=== PATIENT | male | born 2000 | race Caucasian/White ===

== ENCOUNTER 2025-08-10 22:19 | Emergency (ER) | payer SELFPAY ==
[2025-08-10 22:19] VITALS: BP 153/89; PULSE 107; RESP 16; TEMP 36.6; O2SAT 97; BMI 31.1
--- NOTE | 2025-08-10 22:30 | PC.NURSE ---
Pt lac to forehead cleansed with soap and saline, damp 4x4 applied to lac
--- NOTE | 2025-08-10 22:33 | CT_ITS ---
PROCEDURE INFORMATION: Exam: CT Head Without Contrast Exam date and time: 08/10/2025 10:59 PM Age: 25 years old Clinical indication: Pain; Other: Lac to forehead; Forehead lac; Additional info: Head trauma TECHNIQUE: Imaging protocol: Computed tomography of the head without contrast. Radiation optimization: All CT scans at this facility use at least one of these dose optimization techniques: automated exposure control; mA and/or kV adjustment per patient size (includes targeted exams where dose is matched to clinical indication); or iterative reconstruction. COMPARISON: No relevant prior studies available. FINDINGS: Brain: No acute intracranial hemorrhage, midline shift, or mass effect. Cerebral ventricles: No ventriculomegaly. Paranasal sinuses: Mild left maxillary sinus mucosal thickening. Mastoid air cells: Visualized mastoid air cells are well aerated. Bones: Unremarkable. No acute fracture. Soft tissues: Small right frontal scalp laceration. IMPRESSION: 1. No acute intracranial findings. 2. Small right frontal scalp laceration.
--- NOTE | 2025-08-10 22:33 | PC.NURSE ---
Order placed wrong per this RN for Tetanus vaccine. Verbal order from Dr Bello for TDap. Correct medication pulled from [employer] under patients account, however not scanning due to medication entered inccorecct. Dose pulled and verified with Mechelle DILL and given to patient at the order of Dr Bello.
[2025-08-10 23:00] VITALS: BP 132/81; PULSE 78; O2SAT 95
--- NOTE | 2025-08-10 23:12 | ED_ITS ---
Discharge Plan Disposition Patient Disposition: Home, Self-Care Condition: Good Referrals Follow up/Referrals: Provider,Referral, MD [Primary Care Provider, Medical] - See instructions Activity Restrictions/Add. Instructions Additional Instructions/Restrictions: Please apply bacitracin to the wound daily. You can return to work, but you should keep the laceration covered. You may clean the laceration with warm soap and water. Do not submerge your head under water -- no lakes, ponds, garcia, baths, pools, or hot tubs. The stitches will dissolve and fall out within a week. If you have any new or worsening symptoms please return. Clinical Impressions Clinical Impression: Forehead laceration Qualifiers: Encounter type: initial encounter Qualified Code(s): S01.81XA - Laceration without foreign body of other part of head, initial encounter Contusion of head Qualifiers: Encounter type: initial encounter Contusion of head detail: other part of head Qualified Code(s): S00.83XA - Contusion of other part of head, initial encounter Print Language Print Language: Burmese Discharge ED Provider: Doroteo Bello Adult HPI General Chief complaint: Head Injury Stated complaint: laceration Time Seen by Provider: 08/10/25 22:31 Mode of Arrival: EMS Source of Information: Patient and EMS Description of Symptoms (Recalled from ER Triage Doc. by RN): Pt presents via ems with complaints of head injury that occurred just prior to arrival while the patient was working outside and a tool that he was using came back and hit him in the forehead. Pt is unsure of LOC. Pt denies N/V at this time. History of Present Illness HPI narrative: This is a 25-year-old male patient, with past medical history of Crohn's disease, who is presenting to the emergency department today for evaluation of a head injury. Patient states that he he was working on a truck and was changing the brake pads. He was using a crowbar and the bar slipped off of the vehicle and impacted his forehead. He suffered a laceration to the forehead but did not lose consciousness. EMS arrived to the scene and the wound was hemostatic. They brought him here for further evaluation. He states that he has had a significant headache since the injury. No blurred vision, no nausea, no vomiting. Related Data Allergies Allergy/AdvReac Type Severity Reaction Status Date / Time No Known Allergies Allergy Verified 08/10/25 22:24 [facility] Disclaimer: The information contained in this section may have been updated after the patient was seen, as this information can be updated by other users. Social History Smoking Status: Current every day smoker alcohol intake: never current occupational status: employed Travel in the last 8 weeks?: None ROS Obtained: Yes Systems reviewed as appropriate & no additional complaints except as documented Physical Exam General General appearance: other (See MDM) Respiratory Respiratory exam: Present other (See MDM) Cardiovascular Cardiovascular exam: Present other (See MDM) Neurological Exam Neurological exam: Present other (See MDM) Medical Decision Making Medical Records Medical records reviewed: Yes I reviewed the patient's medical records. Screening: Per USPSTF and CDC recommendations, given the prevalence of disease in our region, it is our hospital?s policy to screen for HIV and viral Hepatitis for all patients aged 18 and over and those with ongoing risk factors. Branden Inquiry Pt receiving controlled substance: No Branden was queried for this patient: No Vital Signs: 08/10/25 22:19 08/10/25 23:00 Temperature 97.8 F Temperature Source Oral Pulse Rate 78 Pulse Rate [Radial] 107 H Respiratory Rate 16 Blood Pressure 132/81 Blood Pressure [Right Arm] 153/89 H Blood Pressure Mean [Right Arm] 110 Blood Pressure Position [Right Arm] Sitting 02 Sat by Pulse Oximetry 97 95 Oxygen Delivery Method Room Air Orders (Tests/Meds): ED MEDICATIONS Generic Name Dose Route Start Last Admin Trade Name Freq PRN Reason Stop Dose Admin Bacitracin 1 gm 08/10/25 23:49 Bacitracin Zinc Oint 30gm Tube TP 08/10/25 23:50 ONCE ONE Bacitracin/Polymyxin B Sulfate 0 gm 08/11/25 09:00 Bacitracin-Polymyxin B Oint 30gm Tube TP 09/10/25 08:59 QID DONNA Discontinued Medications Generic Name Dose Route Start Last Admin Trade Name Freq PRN Reason Stop Dose Admin Acetaminophen 1,000 mg 08/10/25 23:14 08/10/25 23:19 Acetaminophen 500mg Tab PO 08/10/25 23:15 1,000 mg ONCE ONE Administration Lidocaine HCl 10 ml 08/10/25 23:15 08/10/25 23:19 Lidocaine 1% 10ml Mdv SUBCUT 08/10/25 23:16 10 ml ONCE ONE Administration Methocarbamol 1,000 mg 08/10/25 23:15 08/10/25 23:22 Methocarbamol 500mg Tablet PO 08/10/25 23:16 Not Given ONCE ONE Oxycodone HCl 5 mg 08/10/25 23:15 08/10/25 23:22 Oxycodone 5mg Immediate Release Tablet PO 08/10/25 23:16 Not Given ONCE ONE ORDERS Category Date Time Status CT head/brain wo con Stat Cat Scan 08/10/25 22:33 Completed Medical Decision Narrative: In summary, this is a 25-year-old male patient who is presenting to the emergency department today for evaluation of a forehead injury versus a crowbar. Comorbidities include past medical history of Crohn's disease. He is not on any anticoagulants. On initial evaluation of the patient they were resting comfortably in no acute distress and nontoxic in appearance. They are hemodynamically stable, saturating well room air, and are neurologically intact. On physical examination the patient he is appropriately alert and interactive with a GCS of 15. He does have a stellate shaped 2 cm laceration over the forehead. This wound is hemostatic. No scalp lacerations, hematomas, or abrasions. No skull depressions. No midface instability or trauma closure. No hemotympanum. No nasal septal hematoma. He has no tenderness of the cervical spine. Differential diagnosis includes forehead laceration, intracranial hemorrhage, skull fracture, among others. Workup was initiated with a CT scan of the head. We have also administered Tylenol for pain. Patient declined Robaxin and oxycodone. CT scan of the head was interpreted by me and demonstrates no large intracranial hemorrhages. Official radiology read is in agreement and states that there is no acute abnormality. I have repaired the patient's laceration at the bedside with 5-0 fast gut suture. We have placed bacitracin on the wound and given him bacitracin to go home with. I have given him return precautions. At this time all questions have been answered and all parties are agreeable with the decision to discharge home Procedures Laceration Laceration 1: Site: face (Forehead) Side (If applicable): right Size (cm): 2 Description: stellate Depth: simple, single layer Local Anesthetic: lidocaine 1% Amount of anesthesia used (mL): 3 Pre-repair: wound explored, irrigated extensively and deep structures intact Skin layer closed with: other (Fast gut) Size (cm): 5-0 Number of sutures: 2 Technique: simple, interrupted Critical Care Critical Care Time Critical Care Time: No
[2025-08-10] MEDS: ACETAMINOPHEN 500MG TAB 1000 MG PO (23:19)
[2025-08-10] MEDS: LIDOCAINE 1% 10ML MDV 10 ML SUBCUT (23:19)
--- OUTSIDE RECORDS SUMMARY | 2025-08-10 23:21 | XMS_ITS | Encounter Summary ---
Author Organization [facility] Address [address] [place] [address] Care Team Providers Care Industrial Pharmacist Name Role Phone Provider, Historical Unavailable Unavailable Mariella Rojas RECEIVING WORKER Primary Care Provider [phone] Ender Villarreal MD Unavailable [phone] Maryan Rod RECEIVING WORKER Unavailable [phone] Vane [place] RECEIVING WORKER Unavailable [phone] Chanda Crane ENROLLMENT SERVICES VICE PRESIDENT Unavailable Unavailable Encounter Details Date Type Department Care Team (Late st Contact Info) Description 10/01/2023 Transcribe Orders Centralized Scheduling [address] [place] [address] Mariella Rojas APRN [address] [place] [address] Social History Tobacco Use Types Packs/Day Years Used Date Smoking Tobacco: Never Smokeless Tobacco: Never Comments:smoker in house Alcohol Use Standard Drinks/Week Comments No 0 (1 standard drink = 0.6 oz pur e alcohol) Sex and Gender Information Value Date Recorded Sex Assigned at Not on file Legal Sex Male 10:54 PM EST Gender Identity Not on file Sexual Orientation Not on file documented as of this encounter Plan of Treatment Not on file documented as of this encounter Visit Diagnoses Not on filedocumented in this encounter Additional Health Concerns Assessment Noted Time PHQ-9 Depression Total Score: 0 05/06/20 18 4:11 PM EDT documented as of this encounter Care Teams Industrial Pharmacist Relationship Specialty Start Date End Date Mariella Rojas APRN [address] [place] [address] PCP - General Family Practice 01/11/18 05/03/24 Provider, Historical 05/07/17 Ender Villarreal MD [address] [place] [address] Gastroenterology 02/19/18 Maryan Rod APRN [address] [place] [address] [address] [place] [address] Gastroenterology 05/12/19 Vane [place] APRN [address] [place] [address] Nurse Practitioner Nurse Practitioner 06/01/19 Chanda Crane LPN LPN 06/15/19 documented as of this encounter
--- OUTSIDE RECORDS SUMMARY | 2025-08-10 23:21 | XMS_ITS | Encounter Summary ---
Author Organization [facility] Address [address] [place] [address] Care Team Providers Care Pipe Coverer Name Role Phone Provider, Historical Unavailable Unavailable Mariella Rojas APRN Primary Care Provider [phone] Ender Villarreal MD Unavailable [phone] Maryan Rod FILM PRINTER Unavailable [phone] Vane Coleman FILM PRINTER Unavailable [phone] Chanda Crane HOT WIRE GLASS TUBE CUTTER Unavailable Unavailable Reason for Visit * Reason Onset Date Comments Results 07/14/2019 Encounter Details Date Type Department Care Team (Late st Contact Info) Description 07/14/2019 Telephone Patient Access Center [address] [place], [place] [address] Cindy Colon RN Results Social History Tobacco Use Types Packs/Day Years [...] on file documented as of this encounter Miscellaneous Notes * Telephone Encounter - Cindy Vazquez RN - 07/14/2019 12:54 PM EDT Campbell Muñoz's grandmother, phoned in requesting test result(s). CT enterography result(s) shared with patient. Recommendations and education provided related to test result(s), she voiced understanding. No additional questions or concerns at this time. Notes recorded by Vane [place] APRN on 07/13/2019 at 10:[address] did not show stricturing or obstruction. Patient needs labs completed prior to beginning Humira.This needs completed by next office visit if possible. documented in this encounter Plan of Treatment Not on file documented as of this encounter Visit Diagnoses Not on filedocumented in this encounter Additional Health Concerns Assessment Noted Time PHQ-9 Depression Total Score: 0 05/06/20 18 4:11 PM EDT documented as of this encounter Care Teams Pipe Coverer Relationship Specialty Start Date End Date Mariella Rojas APRN [address] [place] [address] PCP - General Family Practice 01/11/18 05/03/24 Provider, Historical 05/07/17 Ender Villarreal MD [address] [place] [address] Gastroenterology 02/19/18 Maryan Rod APRN [address] [place] [address] [address] [place] [address] Gastroenterology 05/12/19 Vane [place] APRN [address] [place] [address] Nurse Practitioner Nurse Practitioner 06/01/19 Chanda Crane LPN LPN 06/15/19 documented as of this encounter
--- OUTSIDE RECORDS SUMMARY | 2025-08-10 23:21 | XMS_ITS | Clinical Summary ---
Author Organization [facility] Address [address] [place] [address] Care Team Providers Care Asphalt Paving Superintendent Name Role Phone Provider, Historical Unavailable Unavailable Ender Villarreal MD Unavailable [phone] Maryan Rod PAINTER MAINTENANCE Unavailable Vane Coleman PAINTER MAINTENANCE Unavailable [phone] Chanda Crane PIPE FITTER GAS PIPE Unavailable Unavailable Allergies No known active allergies Medications famotidine (PEPCID PO) Take by mouth. Active omeprazole magnesium (PRILOSEC) [address] tabletIndications :Gastroesophageal reflux disease without esophagitis Take 1 Tab by mouth Daily. 30 Tab 11 12/18/2020 Active Active Problems Problem Noted Date Diagnosed Date Crohn's disease of small intestine with rectal b leeding 06/01/2019 Abdominal pain, right lower quadrant 05/23/2019 Nausea and vomiting 05/23/2019 Resolved Problems Problem Noted Date Diagnosed Date Resolved Date Epigastric pain 05/12/2019 05/23/2019 Overview (05/12/2019): Added automatically from request for surgery [id number] Chronic epigastric pain 02/19/201805/01 Cough 06/01/2017 05/23/2019 Non-intractable cyclical vomiting with nausea 04/26/20 17 05/23/2019 Immunizations Immunization Administration Dates Next Due DTaP 08/01/2008, 3,01/15/2003,2002,08/15/20 02 Hepatitis A 2-dose 01/26/2019 Hepatitis A Adult 08/01/2008 Hepatitis B 01/15/2003,2002,2002 HiB 2002,2002 IPV 08/01/2008,01/15/2003,2002 ,2002 MMR 08/01/2008,08/10/2003 Meningococcal Conjugate 01/26/2019 PPD Test 06/30/2019 Tdap 06/30/2019 Varicella 06/30/2019,08/10/2003 Family History Medical History Relation Name Comments Drug Abuse Father Diabetes Maternal Grandmother Inflammatory Bowel Dz Paternal Grandfather Relation Name Status Comments Father Maternal Grandmother Mother Alive Paternal Grandfather Social History Tobacco Use Types Packs/Day Years Used Date Smoking Tobacco: Never Smokeless Tobacco: Never Tobacco Cessation:Counseling Given: No Comments:smoker in house Alcohol Use Standard Drinks/Week Comments No 0 (1 standard drink = 0.6 oz pur e alcohol) Sex and Gender Information Value Date Recorded Sex Assigned at Not on file Legal Sex Male 10:54 PM EST Gender Identity Not on file Sexual Orientation Not on file Last Filed Vital Signs Vital Sign Reading Time Taken Comments Blood Pressure 148/70 12/18/2020 2:39 PM EST Pulse 100 12/18/2020 2:39 PM EST Temperature 37.2 C (98.9 F) 12/18/2020 2:39 PM EST Respiratory Rate 16 12/18/2020 2:39 PM EST Oxygen Saturation 100% 07/06/2019 9:29 AM EDT Inhaled Oxygen Concentration - - Weight 86.2 kg (190 lb) 12/18/2020 2:39 PM EST Height 180.3 cm (5' 11 ) 12/18/2020 2:39 PM EST Body Mass Index 26.5 12/18/2020 2:39 PM EST Plan of Treatment Health Maintenance Due Date Last Done Comments HEP C SCREENING 2002 ANNUAL WELLNESS EXAM 12/19/2021 12/18/2020, 06/30/2019, 01/26/2019 INFLUENZA VACCINE (#1) 2025 DTAP/TDAP/TD VACCINE (7 - Td or Tdap) 06/30/2029 06/30/2019, 08/01/2008, 09/11/2003, Additional history exists HIB VACCINE Aged Out 2002, 2002 No lo nger eligible based on patient's age to complete this topic HEP A VACCINE Completed 01/26/2019, 08/01/2008 ROTOVIRUS VACCINE Aged Out No longer eligible based on patient's age to complete this topic Advance Directives * Full Code (Latest Code Status on File) Date Activated Date Inactivated Comments 05/22/2019 8:50 PM 05/25/2019 7:36 PM Care Teams Asphalt Paving Superintendent Relationship Specialty Start Date End Date Provider, Historical 05/07/17 Ender Villarreal MD [address] [place] [address] Gastroenterology 02/19/18 Maryan Rod APRN [address] [facility] [address] [place], [place] [address] Gastroenterology 05/12/19 Vane [place] APRN [address] [place] [address] Nurse Practitioner Nurse Practitioner 06/01/19 Chanda Crane LPN LPN 06/15/19
--- OUTSIDE RECORDS SUMMARY | 2025-08-10 23:21 | XMS_ITS | Encounter Summary ---
Author Organization [facility] Address [address] [place] [address] Care Team Providers Care Personnel Technician Name Role Phone Anne Samantha Beck DO Primary Care Provider [phone] Provider, Historical Unavailable Unavailable Doctor, No Primary Care Provider Unavailabl e Mariella Rojas NEUROPSYCHIATRIC AIDE Primary Care Provider [phone] Ender Villarreal MD Unavailable [phone] Maryan Rod NEUROPSYCHIATRIC AIDE Unavailable Vane Coleman NEUROPSYCHIATRIC AIDE Unavailable [phone] Chanda Crane DIRECTOR OF GUIDANCE IN PUBLIC SCHOOLS Unavailable Unavailable Encounter Details Date Type Department Care Team (Late st Contact Info) Description 03/12/2016 Orders Only [facility] [address] [place] [address] Shakira Ferraro APRN [address] [facility] [address] [place], [place] [id number] Strep pharyngitis (Primary Dx) Social History Tobacco Use Types Packs/Day Years Used Date Smoking Tobacco: Never Comments:smoker in house Alcohol Use [...] documented as of this encounter Visit Diagnoses Diagnosis Strep pharyngitis- Primary Streptococcal sore throat documented in this encounter Care Teams Personnel Technician Relationship Specialty Start Date End Date Anne Samanhta KiranDO [address] [place] [address] PCP - General 03/28/09 06/14/17 Minerva Quintanilla [place] PCP - General Family Medicine 06/15/17 01/01/18 Mariella Rojas APRN [address] [place] [address] PCP - General Family Practice 01/11/18 05/03/24 Provider, Historical 05/07/17 Ender Villarreal MD [address] [place] [address] Gastroenterology 02/19/18 Maryan Rod APRN [address] [facility] [address] [place] [address] Gastroenterology 05/12/19 Vane [place] APRN [address] [place] [address] Nurse Practitioner Nurse Practitioner 06/01/19 Chanda Crane LPN LPN 06/15/19 documented as of this encounter
--- OUTSIDE RECORDS SUMMARY | 2025-08-10 23:21 | XMS_ITS | Encounter Summary ---
Author Organization [facility] Address [address] [place] [address] Care Team Providers Care Men'S Locker Room Attendant Name Role Phone Provider, Historical Unavailable Unavailable Mariella Rojas APRN Primary Care Provider [phone] Ender Villarreal MD Unavailable [phone] Maryan Rod ANALOG IC DESIGN ARCHITECT Unavailable [phone] Vane Coleman ANALOG IC DESIGN ARCHITECT Unavailable [phone] Chanda Crane LPN Unavailable Unavailable Reason for Visit * Reason Onset Date Comments Immunizations/Injections 06/15/2019 Encounter Details Date Type Department Care Team (Late st Contact Info) Description 06/15/2019 Telephone [facility] [address] [place] [address], [address] [place] [address] Chanda Crane LPN Immunizations/Injection s Social History Tobacco Use Types Packs/Day Years [...] encounter Miscellaneous Notes * Telephone Encounter - Chanda Crane LPN - 06/16/2019 8:44 AM EDT Tried to call guardian one last time to remind her to get his TB skin test done went to voice mail and box is full. I will keep paperwork in Holding folder incase TB skin testing gets done * Telephone Encounter - Chanda Crane LPN - 06/15/2019 8:25 AM EDT Still holding paperwork for Humira for this patient. Guardian was told at office visit and I calledher on 06-09-19 to remind her I can not send for this medication till he has this done. She voiced understanding said she would get this done soon. Will put this paperwork in my holding file. documented in this encounter Plan of Treatment Not on file documented as of this encounter Visit Diagnoses Not on filedocumented in this encounter Additional Health Concerns Assessment Noted Time PHQ-9 Depression Total Score: 0 05/06/20 18 4:11 PM EDT documented as of this encounter Care Teams Men'S Locker Room Attendant Relationship Specialty Start Date End Date Mariella Rojas APRN [address] [place] [address] PCP - General Family Practice 01/11/18 05/03/24 Provider, Historical 05/07/17 Ender Villarreal MD [address] [place] [address] Gastroenterology 02/19/18 Maryan Rod APRN [address] [facility] [address] [place], [place] [id number] Gastroenterology 05/12/19 Vane [place] APRN [address] [place] [address] Nurse Practitioner Nurse Practitioner 06/01/19 Chanda Crane LPN LPN 06/15/19 documented as of this encounter
--- OUTSIDE RECORDS SUMMARY | 2025-08-10 23:21 | XMS_ITS | Encounter Summary ---
Author Organization [facility] Address [address] [place] [address] Care Team Providers Care Hydro Plant Technician Name Role Phone Provider, Historical Unavailable Unavailable Mariella Rojas SAMPLE DISTRIBUTOR Primary Care Provider [phone] Ender Villarreal MD Unavailable [phone] Maryan Rod SAMPLE DISTRIBUTOR Unavailable [phone] Vane Coleman SAMPLE DISTRIBUTOR Unavailable [phone] Chanda Crane BLOOD BANK LABORATORY TECHNOLOGIST Unavailable Unavailable Reason for Visit * Reason Onset Date Comments Other 03/30/2018 FYI Encounter Details Date Type Department Care Team (Late st Contact Info) Description 03/30/2018 Telephone [facility] [address], [address] [place] [address] Ender Villarreal MD [address] [place], [place] [id number] Other (FYI) Social History Tobacco Use Types Packs/Day Years [...] encounter Miscellaneous Notes * Telephone Encounter - Chikis Alexandra - 04/23/2018 11:38 AM EDT Left message for patient to contact our office regarding rescheduling procedure. * Telephone Encounter - Codie [place] - 03/30/2018 3:50 PM EDT Nurse called stating per Dr. Villarreal that when this patient calls to reschedule his OSC for EGD that he is to be put first priority/first available. States is having to reschedule because paperworkneeded to be filled out. Please advise. documented in this encounter Plan of Treatment Not on file documented as of this encounter Visit Diagnoses Not on filedocumented in this encounter Care Teams Hydro Plant Technician Relationship Specialty Start Date End Date Mariella Rojas APRN [address] [place] [address] PCP - General Family Practice 01/11/18 05/03/24 Provider, Historical 05/07/17 Ender Villarreal MD [address] [place] [address] Gastroenterology 02/19/18 Maryan Rod APRN [address] [place] [address] [address] [place], [place] [id number] Gastroenterology 05/12/19 Vane [place] APRN [address] [place] [address] Nurse Practitioner Nurse Practitioner 06/01/19 Chanda Crane LPN LPN 06/15/19 documented as of this encounter
--- NOTE | 2025-08-10 23:26 | PC.NURSE ---
Provider at the bedside for laceration repair
[2025-08-10] MEDS: BACITRACIN ZINC OINT 30GM TUBE TP (23:50)
[2025-08-10 23:56] VITALS: BP 140/95; PULSE 83; RESP 15; TEMP 36.7; O2SAT 97
== END 2025-08-10 23:57 | disposition home or self-care (01) ==
PROVIDERS: Emergency Provider Student in an Organized Health Care Education/Training Program
DX: S01.81XA Laceration without foreign body of other part of head, initial encounter (principal); R51.9 Headache, unspecified; F17.200 Nicotine dependence, unspecified, uncomplicated; W22.8XXA Striking against or struck by other objects, initial encounter
CPT/HCPCS: 12011; 70450; 99284; J2003